=== PATIENT | male | born 1995 | race Caucasian/White ===

== ENCOUNTER 2021-08-27 01:50 | Emergency (ER) | payer OTHER, MEDICAID ==
[~2021-08-27] VITALS: Ht 188 cm; Wt 88.9 kg
[2021-08-27 02:30] VITALS: BP 153/87
--- NOTE | 2021-08-27 02:37 | NUR ---
PT HELD IN AMBULANCE TO A/W BED
[2021-08-27 02:56] LABS: BASOPHILS % (AUTO) 0.4 % (0.0-2.0); EOSINOPHILS % (AUTO) 0.2 % (0.0-4.0); HEMATOCRIT 40.6 % (36-52); HEMOGLOBIN 14.2 g/dL (12.0-18.0); LYMPHOCYTES # (AUTO) 1.4 K/uL (2.0-11.5); LYMPHOCYTES % (AUTO) 16.3 % (20.5-51.1); MEAN CORPUSCULAR HEMOGLOBIN 32 pg (27-31); MEAN CORPUSCULAR HGB CONC 35 g/dL (33-37); MEAN CORPUSCULAR VOLUME 91.6 fL (80-94); MONOCYTES # (AUTO) 0.4 K/uL (0.8-1.0); MONOCYTES % (AUTO) 4.9 % (1.7-9.3); NEUTROPHILS # (AUTO) 6.8 K/uL (1.8-7.7); NEUTROPHILS % (AUTO) 78.2 % (42.2-75.2); PLATELET COUNT (AUTO) 256 K/uL (140-450); RED BLOOD CELL COUNT(AUTO) 4.44 MIL/uL (4.20-6.10); RED CELL DISTRIBUTION WIDTH 13.2 % (11.6-13.7); WHITE BLOOD COUNT (AUTO) 8.6 K/uL (4.8-10.8)
[2021-08-27 03:22] LABS: ANION GAP 14.3 (8-16); CARBON DIOXIDE 22.6 mmol/L (21-32); CREATININE 1.1 mg/dL (0.6-1.3)
[2021-08-27 03:25] LABS: POTASSIUM 2.9 mmol/L (3.5-5.1)
--- NOTE | 2021-08-27 04:24 | NUR ---
PT TAKEN TO BED 8
[2021-08-27 04:35] VITALS: BP 153/87
--- NOTE | 2021-08-27 04:46 | NUR ---
PT MOVED TO OF
--- NOTE | 2021-08-27 05:29 | NUR ---
PT AMBULATED TO RESTROOM UNASSISTED.
[2021-08-27] MEDS: POTASSIUM CHLORIDE 10 MEQ TABER PO ONE (05:45)
--- NOTE | 2021-08-27 05:45 | NUR ---
Patient discharged with v/s stable. Written and verbal after care instructions given and explained. Patient verbalized understanding. Ambulatory with steady gait. All questions addressed prior to discharge. Advised to follow up with PMD.
[2021-08-27 05:58] LABS: BARBITURATE, URINE NEGATIVE ng/ml (NEG <=200); BENZODIAZEPINE, URINE NEGATIVE ng/mL (NEG <=200); CANNABINOID, URINE POSITIVE ng/mL (NEG <=50); COCAINE, URINE NEGATIVE ng/mL (NEG <=300); PHENCYCLIDINE SCREEN,URINE NEGATIVE ng/mL (NEG <=25)
[2021-08-27 05:59] LABS: OPIATE, URINE NEGATIVE ng/mL (NEG <=2000)
== END 2021-08-27 05:45 | disposition home or self-care (01) ==
LOC: MED 01:50
DX: F10.129 Alcohol abuse with intoxication, unspecified (principal); F12.10 Cannabis abuse, uncomplicated; Y90.9 Presence of alcohol in blood, level not specified
CPT/HCPCS: 36415; 80048; 80305; 85025; 99283; G0482

== ENCOUNTER 2022-07-02 11:56 | Emergency (ER) | payer MEDICAID, OTHER ==
[~2022-07-02] VITALS: Ht 193 cm; Wt 108.4 kg
[2022-07-02 12:10] VITALS: BP 112/69
[2022-07-02 12:21] VITALS: BP 122/63
[2022-07-02] MEDS ORDERED: IBUPROFEN 600 MG TAB PO ONE (13:00)
[2022-07-02] MEDS ORDERED: LIDOCAINE MPF 2% 100 MG/5 ML VIAL INJ ONE (13:00)
--- NOTE | 2022-07-02 13:15 | NUR ---
26/M WALKED IN C/O RIGHT HAND 2ND DIGIT PAIN AND LAC AFTER CUTTING FINGER ON A PIECE OF GLASS. PT STATES UNK TDAP VACCINATION. DESCRIBES PAIN 4/10. SITE NOT ACTIVELY BLEEDING. VITALS STABLE. AAO4. pmh: asthma, bronchitis nka med: denies
--- NOTE | 2022-07-02 13:23 | NUR ---
PT WENT FOR XR
--- NOTE | 2022-07-02 13:28 | NUR ---
PT BACK FROM XR
[2022-07-02] MEDS ORDERED: LIDOCAINE MPF 1% 5 ML ONE (13:30)
--- NOTE | 2022-07-02 13:32 | NUR ---
ADVISED OLIVER EGAN THAT LIDOCAINE 2% IS OUT OF STOCK IN [facility]. PER OLIVER EGAN, OK TO GIVE 1%. MANUALLY PULLED OUT 1% LIDO 5ML.
--- NOTE | 2022-07-02 13:42 | NUR ---
OLIVER AT BEDSIDE FOR LAC REPAIR
--- NOTE | 2022-07-02 14:16 | NUR ---
PATIENT LEFT WITHOUT PAPERWORK OR INSTRUCTIONS
== END 2022-07-02 14:16 | disposition home or self-care (01) ==
LOC: MED 11:56
DX: S61.210A Laceration without foreign body of right index finger without damage to nail, initial encounter (principal); W25.XXXA Contact with sharp glass, initial encounter; Y93.89 Activity, other specified; Y92.89 Other specified places as the place of occurrence of the external cause; Y99.8 Other external cause status
CPT/HCPCS: 12001; 73140; 90471; 90715; 99283; J2001